=== PATIENT | female | born 1985 | race Two or more races ===

== ENCOUNTER 2017-06-17 16:05 | Inpatient (IN) | payer OTHER ==
[~2017-06-17] VITALS: Ht 149.9 cm; Wt 78.5 kg
[2017-06-17] MEDS ORDERED: PRENATAL TABLE1 EAC3 PO (17:15)
[2017-08-01] MEDS ORDERED: TRANDATE PO (17:18)
[2017-08-01] MEDS ORDERED: Mylicon 125MG PO (17:18)
[2017-08-01] MEDS ORDERED: IBUPROFEN400 MG PO (17:18)
== END 2017-08-02 15:06 | disposition home or self-care (01) | DRG 765 ==
LOC: LDR 16:05 → OB/GYN 16:05 → EDBD 16:05 → LDR 06-18 00:53 → OB/GYN 06-18 12:17
PROVIDERS: Obstetrics & Gynecology
PROC: BY4CZZZ Ultrasonography of Second Trimester, Single Fetus (ICD-10-PCS; 2017-06-17)
PROC: 4A1HXCZ Monitoring of Products of Conception, Cardiac Rate, External Approach (ICD-10-PCS; 2017-06-17)
PROC: BY4CZZZ Ultrasonography of Second Trimester, Single Fetus (ICD-10-PCS; 2017-06-25)
PROC: BY4CZZZ Ultrasonography of Second Trimester, Single Fetus (ICD-10-PCS; 2017-07-03)
PROC: BY4CZZZ Ultrasonography of Second Trimester, Single Fetus (ICD-10-PCS; 2017-07-09)
PROC: BY4CZZZ Ultrasonography of Second Trimester, Single Fetus (ICD-10-PCS; 2017-07-17)
PROC: BY4FZZZ Ultrasonography of Third Trimester, Single Fetus (ICD-10-PCS; 2017-07-20)
PROC: B44 Imaging, Lower Arteries, Ultrasonography (ICD-10-PCS; 2017-07-21)
PROC: BY4FZZZ Ultrasonography of Third Trimester, Single Fetus (ICD-10-PCS; 2017-07-24)
PROC: 4A033R1 Measurement of Arterial Saturation, Peripheral, Percutaneous Approach (ICD-10-PCS; 2017-07-28)
PROC: 10D00Z1 Extraction of Products of Conception, Low, Open Approach (ICD-10-PCS; principal; 2017-07-28 10:00)
PROC: B020ZZZ Computerized Tomography (CT Scan) of Brain (ICD-10-PCS; 2017-08-01)
DX: O13.2 Gestational [pregnancy-induced] hypertension without significant proteinuria, second trimester (principal); O60.13X0 Preterm labor second trimester with preterm delivery third trimester, not applicable or unspecified; O41.03X0 Oligohydramnios, third trimester, not applicable or unspecified; O36.5920 Maternal care for other known or suspected poor fetal growth, second trimester, not applicable or unspecified; O14.02 Mild to moderate pre-eclampsia, second trimester; Z37.0 Single live birth; O69.81X0 Labor and delivery complicated by cord around neck, without compression, not applicable or unspecified; Z3A.24 24 weeks gestation of pregnancy; O99.013 Anemia complicating pregnancy, third trimester

== ENCOUNTER 2019-07-25 07:37 | Emergency (ER) | payer OTHER ==
[~2019-07-25] VITALS: Ht 149.9 cm; Wt 74.8 kg
[~2019-07-25 07:37] MED LIST: IBUPROFEN400 MG PO; Mylicon 125MG PO; PRENATAL TABLE1 EAC3 PO; TRANDATE PO
== END 2019-07-25 11:16 | disposition home or self-care (01) ==
LOC: ER 07:37
DX: B34.9 Viral infection, unspecified (principal); B96.0 Mycoplasma pneumoniae [M. pneumoniae] as the cause of diseases classified elsewhere